=== PATIENT | male | born 1980 | race Hispanic/Latino ===

== ENCOUNTER 2020-08-09 20:27 | Inpatient (IN) | payer SELFPAY ==
[~2020-08-09] VITALS: Ht 167.6 cm; Wt 127.0 kg
[2020-08-09] MEDS ORDERED: CEFTRIAXONE SOD 1 GM/NS 50 ML 50 ML IV ONE (22:00)
[2020-08-09] MEDS ORDERED: ACETAMINOPHEN 325 MG TAB PO ONE (22:00)
[2020-08-10 00:01] LABS: BASOPHILS # (AUTO) 0.1 (0.0-0.1); BASOPHILS % 0.3 % (0.0-1.0); EOSINOPHILS % 0.1 % (0.0-6.0); HEMATOCRIT 40.9 % (38.2-49.6); HEMOGLOBIN 13.6 g/dL (14.0-18.0); LYMPHOCYTES # (AUTO) 0.8 (1.0-3.2); LYMPHOCYTES % 4.9 % (18.0-39.1); MEAN CORPUSCULAR HEMOGLOBIN 29.1 pg (28-32); MEAN CORPUSCULAR HGB CONC 33.3 g/dL (31-35); MEAN CORPUSCULAR VOLUME 87.6 fL (81-99); MONOCYTES # (AUTO) 0.3 (0.2-0.8); MONOCYTES % 1.5 % (4.4-11.3); NEUTROPHILS # (AUTO) 15.5 (2.1-6.9); NEUTROPHILS % 92.3 % (38.7-80.0); PLATELET COUNT 458 x10e3/uL (140-360); RED BLOOD COUNT 4.67 x10e6/uL (4.3-5.7); RED CELL DISTRIBUTION WIDTH 12.5 % (11.7-14.4)
[2020-08-10 00:14] LABS: ALANINE AMINOTRANSFERASE 17 IU/L (0-55); ALBUMIN 2.7 g/dL (3.5-5.0); ALBUMIN/GLOBULIN RATIO 0.5 (0.8-2.0); ALKALINE PHOSPHATASE 112 IU/L (40-150); ANION GAP 16.9 mmol/L (8-16); BLOOD UREA NITROGEN 20 mg/dL (7-26); BUN/CREATININE RATIO 19 (6-25); CALCIUM 9.5 mg/dL (8.4-10.2); CARBON DIOXIDE 28 mmol/L (22-29); CHLORIDE 93 mmol/L (98-107); CREATINE KINASE 55 IU/L (30-200); CREATININE, SERUM 1.03 mg/dL (0.72-1.25); EST GLOMERULAR FILTRATION RATE > 60 ML/MIN (60-); GLUCOSE 344 mg/dL (74-118); POTASSIUM 3.9 mmol/L (3.5-5.1); SODIUM 134 mmol/L (136-145)
[2020-08-10] MEDS ORDERED: CEFTRIAXONE SOD 1 GM/NS 50 ML 50 ML IV ONE (01:55)
[2020-08-10] MEDS ORDERED: SODIUM CHLORIDE 0.9% 1000ML 1,000 ML IV ONE (02:00)
[2020-08-10] MEDS ORDERED: ACETAMINOPHEN 325 MG TAB PO PRN (02:00)
[2020-08-10] MEDS ORDERED: DEXTROSE 50% SYRINGE 50 ML IV PRN ×2 (02:00→12:00)
[2020-08-10] MEDS ORDERED: CEFTRIAXONE SOD 1 GRAM/0.9% SOD CHL 50ML BAG IV SCH (02:00)
[2020-08-10] MEDS ORDERED: DEXAMETHASONE SOD PHOS 10 MG/1 ML VIAL IV ONE (02:00)
[2020-08-10] MEDS ORDERED: AZITHROMYCIN 500MG/SOD CHL 0.9% 250ML BAG IV SCH (02:00)
[2020-08-10] MEDS ORDERED: INSULIN REGULAR, HUMAN 100 UNIT/1 ML 3ML VIAL SQ SCH ×2 (07:30→16:30)
[2020-08-10] MEDS ORDERED: HYDRALAZINE HCL 20 MG/ML VIAL IV PRN (12:00)
[2020-08-10] MEDS ORDERED: METHYLPREDNISOLONE SOD SUCC 125 MG/2ML VIAL IV SCH (14:00)
[2020-08-10 14:54] LABS: ABG HCO3 30 mmol/L (22-26); ABG PCO2 37 mmHg (35-45); ABG PH 7.53 (7.35-7.45); ABG PO2 63 mmHg (80-105); ABG TCO2 31
[2020-08-10] MEDS ORDERED: ENOXAPARIN SOD INJ 40 MG/0.4 ML SYR SC SCH (17:00)
== END 2020-08-10 19:15 | disposition short-term general hospital (02) | DRG 205 ==
LOC: ER 21:52 → ERHOLD 08-10 01:59
PROVIDERS: ADMIT Internal Medicine Critical Care Medicine; ATTEND Internal Medicine Critical Care Medicine
DX: U07.0 Vaping-related disorder (principal); J18.9 Pneumonia, unspecified organism; R09.02 Hypoxemia; E11.65 Type 2 diabetes mellitus with hyperglycemia; I10 Essential (primary) hypertension; J68.8 Other respiratory conditions due to chemicals, gases, fumes and vapors; Z20.822 Contact with and (suspected) exposure to COVID-19
CPT/HCPCS: 36415; 36600; 71045; 71250; 80053; 82550; 82553; 82805; 82948; 83605; 84484; 85025; 87040; 99284; J0456; J0696; J1650; J1817; J2930; U0002